=== PATIENT | female | born 1985 | race Caucasian/White ===

== ENCOUNTER → 2020-10-19 17:33 | Outpatient (BNVA) | payer BC, SELFPAY | PROVIDERS: Visit Provider Nurse Practitioner Family | DX: N39.0 Urinary tract infection, site not specified (principal) | CPT/HCPCS: 81000; 87086 ==

== ENCOUNTER 2020-12-31 13:28 | Outpatient (CLI) | payer BC, SELFPAY ==
--- NOTE | 2020-12-31 13:36 | US_ITS ---
WS: [id number] EARLY OBSTETRICAL ULTRASOUND (<14 WEEKS). HISTORY: VAGINAL BLEEDING, FIRST TRIMESTER/DATING COMPARISON: None available. Single intrauterine gestational sac is identified. Uterus is retroverted. Cardiac activity at 120 BPM . [place]-rump length measures 0.7 cm which corresponds to a gestation of 6w3d. Normal-appearing yolk s ac and amnion demonstrated. Smallsubchorionic hemorrhage.Hemorrhage measure 10 x 5 mm. Subchorionic h emorrhage is to the LEFT of midline. No free fluid. RIGHT ovary is not identified. Normal LEFT ovary. US/US OB <=14 wk fetus w transvag IMPRESSION: 1. Single intrauterine gestation of 6 weeks 3 days with an EDC of 08/23/2021. 2. Small subchorionic hemorrhage.
== END 2020-12-31 13:29 | disposition home or self-care (01) ==
LOC: RAD 13:32
PROVIDERS: Visit Provider Family Medicine
DX: O46.91 Antepartum hemorrhage, unspecified, first trimester (principal); Z3A.01 Less than 8 weeks gestation of pregnancy
CPT/HCPCS: 76801; 76817

== ENCOUNTER 2021-03-31 15:13 | Outpatient (CLI) | payer BC, SELFPAY ==
--- NOTE | 2021-03-31 15:18 | US_ITS ---
WS: [id number] OB ultrasound, 03/31/2021 Clinical Data: ANATOMY Comparison: OB ultrasound, 12/31/2020 Findings: There is a single intrauterine in the vertex presentation. The placenta is Anterior and gra de 1. There is a normal amount of amnionic fluid. The heart rate is 131 beats per minute. The c ervical length is 4.74 cm. Measurements of growth and development: BPD: 4.6 cm HC: 17.6 cm AC: 13.7 cm FL: 3.1 cm The estimated weight is 294 or approximately 10 ounces The estimated gestational age is 19w5d w ith an BEAU of approximately 08/20/2021. anatomy show a normal stomach, kidneys, bladder, both arms and both legs, female gender, RVOT/L VOT, cord insertion, three-vessel cord, entire spine, four-chamber heart, lateral cerebral ventricles , cerebellum and cisterna magna. The profile, nose and upper lip were not well seen. US/US OB >= 14 weeks fetus [id number] Impression: 1. Single intrauterine in vertex presentation. 2. Estimated gestational age 19w5d with an BEAU of 08/20/2021. 3. heart rate 131 beats per minute.
== END 2021-03-31 15:14 | disposition home or self-care (01) ==
LOC: RAD 15:16
PROVIDERS: Visit Provider Family Medicine
DX: Z34.82 Encounter for supervision of other normal pregnancy, second trimester; Z3A.19 19 weeks gestation of pregnancy
CPT/HCPCS: 76805

== ENCOUNTER 2021-07-13 09:39 | Outpatient (CLI) | payer BC, SELFPAY ==
[2021-07-13] VITALS (13 sets, daily range): BP systolic 117–132; BP diastolic 78–90; PULSE 74–90; TEMP 36.3
--- NOTE | 2021-07-13 09:54 | US_ITS ---
WS: [id number] ULTRASOUND OB LIMITED TECHNIQUE: Limited ultrasound examination of the fetus. CLINICAL INFORMATION: hypertension COMPARISON: None. FINDINGS: Cervix is long and closed measuring 4.2 cm Single interuterine gestation. presentation is vertex Placental location is anterior. Placenta grade: 0. heart rate 144 BPM. ROGER 18.4 cm greater than the median and less than the 95th percentile Normal umbilical artery and umbilical vein waveforms. Umbilical artery resistive indices 0.49-0.73. N ormal umbilical artery pulsatility and resistive indices. Anatomy: BDP: 8.9 cm = 36w0d HC: 32.5 cm = 36w6d AC: 30.9 cm = 34w6d FEMUR LENGTH: 6.9 cm = 35w2d Estimated weight: 2636 g., 69th %. EGA by ultrasound: 35w5d BEAU by ultrasound: 08/12/2021 Biophysical profile 8 out of 8. breathin movement: 2 tone: 2 Amniotic fluid: 2 US/US OB lm w fetalBPP woNST &umb IMPRESSION: 1. Normal biophysical profile 8 out of 8 2. Cervix is long and closed measuring 4.2 cm
[2021-07-13 10:32] LABS: Basophils % 0.4 %; Eosinophils % 0.4 %; Hematocrit 35.1 % (37.0-47.0); Hemoglobin 10.9 g/dL (11.5-15.3); Lymphocytes # 1.9 10^3/uL (0.8-4.8); Lymphocytes % 17.6 %; Mean Corpuscular HGB Conc 31.1 g/dL (30.0-36.0); Mean Corpuscular Hemoglobin 26.3 pg (28.0-34.0); Mean Corpuscular Volume 84.8 fl (81-99); Mean Platelet Volume 10.7 fL (7.4-10.4); Monocytes # 0.7 10^3/uL (0.2-0.9); Monocytes % 6.4 %; Neutrophils # 8.22 10^3/uL (1.8-7.7); Neutrophils % 74.7 %; Nucleated Red Blood Cells % 0 %; Platelet Count 243 10^3/cmm (130-400); Red Blood Count 4.14 10^6/uL (4.1-5.3); Red Cell Distribution Width 13.9 % (12.1-15.1)
[2021-07-13 10:56] LABS: Chloride 103 mmol/L (98-107)
[2021-07-13 11:13] LABS: Alanine Aminotransferase 13 U/L (0-33); Alkaline Phosphatase 107 IU/L (35-105); Aspartate Amino Transferase 16 U/L (0-32); Blood Urea Nitrogen 6 mg/dL (6-20); Calcium 8.4 mg/dL (8.5-10.5); Carbon Dioxide 18 mmol/L (22-29); Globulin 3.1 g/dL (1.3-4.6); Glomerular Filtration Rate 142.1 mL/min (90-130); Glucose 77 mg/dL (65-115); Osmolality Calculated 276 mOsm/kg (285-295); Sodium 135 mmol/L (136-145); Total Bilirubin 0.3 mg/dL (0.15-1.2); Total Protein 6.1 g/dL (6.6-8.7); Uric Acid 4.7 mg/dL (2.4-5.7)
== END 2021-07-13 12:40 | disposition home or self-care (01) ==
LOC: OPOB 09:44 → OBGYN 09:45
PROVIDERS: Visit Provider Family Medicine
DX: O16.3 Unspecified maternal hypertension, third trimester (principal); Z3A.35 35 weeks gestation of pregnancy
CPT/HCPCS: 36415; 59025; 76815; 76819; 76820; 80053; 84550; 85025; 99211

== ENCOUNTER 2021-07-18 13:05 | Outpatient (CLI) | payer BC, SELFPAY ==
[2021-07-18 13:21] VITALS: BP 133/89; PULSE 94; TEMP 36.4
[2021-07-18 13:24] VITALS: RESP 18
[2021-07-18 13:25] VITALS: BMI 33.4
[2021-07-18 13:29] VITALS: TEMP 36.4
[2021-07-18 13:37] VITALS: BP 134/95; PULSE 88
[2021-07-18 13:53] VITALS: BP 132/82; PULSE 94
== END 2021-07-18 14:02 | disposition home or self-care (01) ==
LOC: OPOB 13:13 → OBGYN 13:14
PROVIDERS: Visit Provider Family Medicine
DX: O13.9 Gestational [pregnancy-induced] hypertension without significant proteinuria, unspecified trimester (principal); Z3A.00 Weeks of gestation of pregnancy not specified
CPT/HCPCS: 59025

== ENCOUNTER 2021-07-21 12:17 | Outpatient (CLI) | payer BC, SELFPAY ==
[2021-07-21] VITALS (7 sets, daily range): BP systolic 118–130; BP diastolic 77–86; PULSE 80–92; TEMP 36.3; BMI 33.4
--- NOTE | 2021-07-21 12:48 | US_ITS ---
WS: [id number] BIOPHYSICAL PROFILE UMBILICAL ARTERY DOPPLER HISTORY: Hypertension COMPARISON: 07/13/2021 Cardiac activity: 157 bpm. Cervix: closed. Placenta: Anterior, no previa or abruption. Placenta grade: 1 Amniotic index: 7.2 cm, just above the 5th percentile. Largest vertical pocket of amniotic fluid is 3 .8 cm. Parameters are as follows: Breathin Movement: 2 Tone: 2 Fluid volume: 2 Waveform analysis: Normal systolic and diastolic velocities. Diastolic velocity remains above the bas nunu. Normal upstroke of waveform. SD ratios: SD ratios range from 1.9-2.8 Resistivity indices: 0.48, 0.64 US/US OB BPP wo NST w umb IMPRESSION: 1. Biophysical profile score: 8/8. 2. Normal cardiac activity. 3. Normal Doppler umbilical artery. 4. Oligohydramnios. Notified Miles Scott MD at 07/21/2021 1:57 PM. Nail Welter will notified Paras Scott.
== END 2021-07-21 14:18 | disposition home or self-care (01) ==
LOC: OPOB 12:21 → OBGYN 12:25
PROVIDERS: Visit Provider Family Medicine
DX: O16.9 Unspecified maternal hypertension, unspecified trimester (principal); O41.00X0 Oligohydramnios, unspecified trimester, not applicable or unspecified; Z3A.00 Weeks of gestation of pregnancy not specified
CPT/HCPCS: 59025; 76819; 76820

== ENCOUNTER 2021-07-25 08:35 | Outpatient (CLI) | payer BC, SELFPAY ==
[2021-07-25 08:52] VITALS: RESP 16; TEMP 36.6
--- NOTE | 2021-07-25 08:56 | US_ITS ---
WS: [id number] ULTRASOUND OB LIMITED TECHNIQUE: Limited ultrasound examination of the fetus. CLINICAL INFORMATION: Gestational Diabetes and Gestational Hypertension COMPARISON: July 21, 2021 FINDINGS: Cervix measures 4.1 cm Single interuterine gestation. Placental location is anterior. Placenta grade: 1 heart rate 141 BPM. ROGER 7.1 cm just below the 50th percentile Normal umbilical artery Doppler Normal Systolic/diastolic ratio 2.49 Resistive index 0.59 Gestational age 37 weeks 4 days Estimated delivery August 11, 2021 Biophysical profile 8 out of 8. breathin movement: 2 tone: 2 Amniotic fluid: 2 IMPRESSION 1. Cervix measures 4.1 cm. Cervix is long and closed. 2. Normal biophysical profile 8 out of 8 3. Amniotic fluid volume measures less than the 5th percentile slightly decreased from previous comp atible with oligohydramnios. 4. Normal umbilical artery Doppler
[2021-07-25 09:07] VITALS: BP 125/90; PULSE 82
[2021-07-25 09:20] VITALS: BP 124/87; PULSE 78
[2021-07-25 09:35] VITALS: BP 127/90; PULSE 78
[2021-07-25 09:50] VITALS: BP 130/92; PULSE 71
[2021-07-25 10:05] VITALS: BP 128/86; PULSE 87
[2021-07-26 15:30] LABS: Coronavirus Test Green County Not Detected
== END 2021-07-25 10:19 | disposition home or self-care (01) ==
LOC: OPOB 08:41 → OBGYN 08:52
PROVIDERS: Visit Provider Family Medicine
DX: O24.419 Gestational diabetes mellitus in pregnancy, unspecified control (principal); O13.9 Gestational [pregnancy-induced] hypertension without significant proteinuria, unspecified trimester; Z3A.37 37 weeks gestation of pregnancy; Z20.822 Contact with and (suspected) exposure to COVID-19
CPT/HCPCS: 59025; 76815; 76819; 76820; 87635; 99211

== ENCOUNTER 2021-07-28 06:12 | Inpatient (IN) | payer BC, SELFPAY ==
[2021-07-28] VITALS (129 sets, daily range): BP systolic 104–139; BP diastolic 57–98; PULSE 64–120; RESP 17; TEMP 35.9–36.6; O2SAT 98–100; BMI 33.0
[2021-07-28 07:02] LABS: Basophils % 0.2 %; Eosinophils # 0.1 10^3/uL (0.0-0.8); Eosinophils % 0.4 %; Hematocrit 35.2 % (37.0-47.0); Hemoglobin 11.3 g/dL (11.5-15.3); Lymphocytes # 3.3 10^3/uL (0.8-4.8); Lymphocytes % 27.5 %; Mean Corpuscular HGB Conc 32.1 g/dL (30.0-36.0); Mean Corpuscular Hemoglobin 26.4 pg (28.0-34.0); Mean Corpuscular Volume 82.2 fl (81-99); Mean Platelet Volume 11.5 fL (7.4-10.4); Monocytes # 0.8 10^3/uL (0.2-0.9); Monocytes % 6.6 %; Neutrophils # 7.78 10^3/uL (1.8-7.7); Neutrophils % 64.7 %; Nucleated Red Blood Cells % 0 %; Platelet Count 230 10^3/cmm (130-400); Red Blood Count 4.28 10^6/uL (4.1-5.3); Red Cell Distribution Width 14.6 % (12.1-15.1)
[2021-07-28] MEDS: miSOPROStol 100 mcg tablet 25 MCG VAGINAL (07:17)
--- NOTE | 2021-07-28 08:33 | P.HP_ITS ---
Providers/Chief Complaint Admitting Physician: Miles Scott MD Chief Complaint: INDUCTION OF LABOR History of Present Illness Leslie Kolb is a 35 year old at 37.0 weeks gestation by LMP consistent with 6-week ultrasound. 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 The patient presented to labor and delivery triage secondary to a scheduled induction of labor for preeclampsia without severe features. The patient has been having some intermittent elevated blood pressures with a 24-hour urine protein of 324 on 07/11/2021. We discussed at that time delivery versus watchful waiting. We decided to wait until 37 weeks as her symptoms were still mild in nature. The patient does have gestational diabetes and has been controlling her blood sugars well with diet alone. Currently the patient feels well overall. She did throw up this morning and feels that it was due to anxiety. She had a few flashes of light that self resolved. She denies any active headaches and dizziness. The patient denies leakage of fluid, vaginal bleeding, chest pains, shortness of breath, fever, dysuria. Medications/Allergies Home Medications Medication Instructions Recorded Confirmed Last Taken Type ferrous sulfate [Iron (ferrous 325 mg PO DAILY 07/13/21 07/28/21 2 Days Ago History sulfate)] ~07/26/21 prenat.vits,mary anne,[id number] 1 tab PO DAILY 07/13/21 07/28/21 2 Days Ago History [ Vitamin] ~07/26/21 Allergies Allergy/AdvReac Type Severity Reaction Status Date / Time No Known Allergies Allergy Verified 07/28/21 06:19 PFSH Acute PFSH: Family History (Updated 07/28/21 @ 08:39 by Miles Scott MD) Father Melanoma Social History Smoking and tobacco status: never smoked Alcohol intake: never Female Reproductive History: : 4 Vitals/I&O/Wt Last Vital Signs Temp 96.6 F L 07/28/21 06:39 Pulse 85 07/28/21 08:25 BP 130/88 07/28/21 08:25 Weight last 48 hrs Weight 205 lb Physical Exam Narrative: EXAM NARRATIVE: General: Alert and oriented x3 Eyes: Pupils equal round and reactive to light and accommodation Mouth: Mucous membranes moist, pharynx non-erythematous Cardiac: Regular rate and rhythm without murmurs Lungs: Clear to auscultation bilaterally without wheezes, crackles or rhonchi Abdomen: Soft, non-tender, fundus consistent with gestational age Extremities: +1 pitting edema in the bilateral lower extremities, deep tendon reflexes are brisk. Data : 07/28/21 06:35 A&P Assessment and plan (1) Oligohydramnios: Status: Acute (2) Gestational diabetes: Status: Acute (3) Preeclampsia: Status: Acute (4) Intrauterine : Status: Acute Additional A&P Information The patient is doing well at this time. Her preeclampsia and gestational diabetes are stable. We will proceed with induction of labor using Cytotec as she was 1 cm dilated upon admission. Contractions are currently every 6 to 8 minutes. The patient is not feeling them. heart tones are in the mid 140s with moderate variability and good accelerations. There are occasional early decelerations noted with contractions. We will check a blood sugar to see where we are starting and plan to check these throughout the delivery process. We will continue to follow blood pressures to be sure that they do not move up. We will plan to start the patient on IV magnesium during the active phase of labor. The patient may have a laboring epidural at 3 to 4 cm. Her GBS status is negative. All questions were answered. Proceed with induction of labor as scheduled due to preeclampsia without severe features. Attestations Medical Necessity Statement*: The patient will be here for greater than 2 midnights due to routine intrapartum and management of labor and delivery with complications of gestational diabetes, oligohydramnios and preeclampsia. 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
[2021-07-28 08:47] LABS: Glucose Point of Care 91 mg/dL (70-110)
[2021-07-28 12:49] LABS: Glucose Point of Care 71 mg/dL (70-110)
[2021-07-28] MEDS: dextrose 5%-lactated ringers 1,000 ML 125 ML IV ×2 (14:11→19:20)
[2021-07-28] MEDS: oxytocin 30 UNIT/500 ML BAG IV (14:12)
[2021-07-28] MEDS: lactated ringers 1,000 ML 999 ML IV ×2 (15:20→17:23)
--- NOTE | 2021-07-28 16:33 | PM.MISC ---
Miscellaneous Note Note: The patient has had some intermittent late decelerations. heart tones are in the mid 140s with moderate variability and good accelerations with intermittent decelerations. The patient has been nissa every 2 to 3 minutes. We tried to start IV Pitocin and there were more lights, so this was stopped. She was only on 1 unit. She has made change to 3.5 cm with 65% effacement. Since she is continuing to make change, we will not add any other medications at this time. The patient requests a labor epidural and we will proceed with this. For now I feel that we can safely continue with labor and for the vaginal delivery, however I did discuss that if we were having repetitive lights, that we would need to consider a section. We will watch for now. All questions were answered. The patient and her are in agreement with the current plan of care.
[2021-07-28 16:41] LABS: Glucose Point of Care 80 mg/dL (70-110)
--- NOTE | 2021-07-28 18:32 | P.ANES_ITS ---
Anesthesia Procedures Procedure/Date: 07/28/21 Epidural: Time Out Performed: Yes Consents Signed: Procedure Consent Consent: from patient, risks and benefits reviewed and patient agrees to proceed Lumbar Level: L3-L4 Epidural position: sitting Epidural procedure: sterile prep of area, 1% lidocaine to numb the area, 18 g needle (RACQUEL at 8cm), n eg for paresthesia, test dose given, 1.5% xylocaine 1:200k epi (5cc), 0.2% Ropivacaine bolus ml (5cc off pump), placed PCEA, no systemic response, sterile dressing applied, L.U.D. no apparent complications and 0.2% Ropiavacaine @ mls/hr (13cc/hour)
[2021-07-28] MEDS: ondansetron 2 mg/ML SDV 2 mL 4 MG IVP (19:42)
[2021-07-28] MEDS: magnesium sulfate premix 4 GM/100 ML PREMIX IV (20:14)
--- NOTE | 2021-07-28 20:26 | PM.DELIVERY ---
Delivery Note: Date of delivery: July 28, 2021 Pre-Delivery Course: Leslie Kolb is a 35 year old G4 now P3002 status post spontaneous vaginal delivery at 37.0 weeks gestation by LMP consistent with 6-week ultrasound. 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 The patient presented to labor and delivery triage secondary to a scheduled induction of labor for preeclampsia without severe features. The patient has been having some intermittent elevated blood pressures with a 24-hour urine protein of 324 on 07/11/2021. We discussed at that time delivery versus watchful waiting. We decided to wait until 37 weeks as her symptoms were still mild in nature. The patient does have gestational diabetes and has been controlling her blood sugars well with diet alone. The patient came in for induction of labor on the morning of 07/28/2021. The patient was given 1 dose of Cytotec as her cervix was 1/50/-4 upon presentation. After the first dose, the patient had some intermittent late decelerations. These cleared with position changing. The patient had long stretches with reassuring heart tones. Patient began to contract regularly and was nissa every 3 to 5 minutes. 4 hours after the first dose of Cytotec, she was 2/50/-2. IV Pitocin was started at 1 unit to augment labor, however there were late decelerations with this. For this reason it was stopped. The patient was watched for the next couple of hours and began to make change on her own. She made steady change and had some intermittent periods with late decelerations followed by long stretches with reassuring heart tones. The patient received a laboring epidural and had another stretch of late decelerations that were felt to be associated with lower blood pressure. As her blood pressure improves these also resolved. The patient was checked and noted to be 6 cm dilated. It was felt that since she was changing rapidly, that we could continue to proceed with a vaginal delivery since the lates were improving. At 1930 heart tone tracings were with moderate variability. At 1939 the patient was set up to have catheter placement. Following this a deceleration started and turned into a prolonged deceleration. I was watching the strip and entered the room and checked the patient. The patient was found to be complete. While we were setting up, the patient was put into hands and knees position and heart tones did improve. At 1947, AROM was performed and abundant clear fluid was noted. The patient was complete at that time. Delivery: The patient began pushing at 1948 on 07/28/2021. She pushed very well and the infant descended from -1 station to after 1 contraction. With the following contraction, the patient was able to push the infant out. The delivered in the OA position at 1952 on 07/28/2021. A tight nuchal cord was present and could not be reduced easily, so the was delivered through the cord. The left shoulder was the anterior shoulder and it delivered with ease. The rest of the infant delivered with ease. The 's mouth and nose were bulb suctioned by myself. The infant was placed on the mother's chest where the nurses were waiting to care for her. The infant had poor tone at , so the cord was clamped immediately by myself and cut by the 's father. The infant was taken to the warmer for further resuscitation. The cord was then drained of blood and a sample of cord blood was obtained. Traction was placed on the umbilical cord and the placenta delivered quickly with ease. The placenta was noted to be intact with a central umbilical cord insertion site. The uterus was massaged and the patient had very little bleeding. Uterus was noted to be firm, but elevated as the bladder was felt to be full of urine. The cervix was inspected and no lacerations were noted. The vaginal wall was inspected and a second-degree laceration was noted on the left wall. This was bleeding. The patient's epidural provided adequate anesthesia and the laceration was repaired with 3-0 Vicryl in a running fashion. The patient tolerated this well. A rectal exam was done and no sutures were noted in the rectal vault. Currently both the mother and are doing well. A&P Assessment and plan (1) Oligohydramnios: Status: Acute (2) Gestational diabetes: Status: Acute (3) Preeclampsia: Status: Acute (4) Intrauterine : Status: Acute (5) Spontaneous vaginal delivery: Status: Acute Coding Level of Care Code Acute [employer] Refrigerator for [facility] Diagnoses Oligohydramnios O41.00X0 Gestational diabetes O24.419 Preeclampsia O14.90 Intrauterine Z34.90 Spontaneous vaginal delivery O80
[2021-07-28] MEDS: magnesium sulfate premix 20 GM/500 ML BAG IV (20:34)
[2021-07-28] MEDS: oxytocin 30 UNIT/500 ML BAG 600 UNIT IV (20:45)
[2021-07-28] MEDS: ibuprofen 800 mg tablet PO (21:01)
[2021-07-29] VITALS (21 sets, daily range): BP systolic 108–126; BP diastolic 67–90; PULSE 72–89; TEMP 35.8–36.3
[2021-07-29 03:04] LABS: Magnesium Level (OB Only) 4.5 mg/dL (5.0-7.5)
[2021-07-29] MEDS: magnesium sulfate premix 20 GM/500 ML BAG IV ×2 (06:27→15:39)
[2021-07-29 08:49] LABS: Hematocrit 31.5 % (37.0-47.0); Mean Corpuscular HGB Conc 31.7 g/dL (30.0-36.0); Mean Corpuscular Hemoglobin 26.2 pg (28.0-34.0); Mean Corpuscular Volume 82.5 fl (81-99); Mean Platelet Volume 11.3 fL (7.4-10.4); Platelet Count 173 10^3/cmm (130-400); Red Blood Count 3.82 10^6/uL (4.1-5.3); Red Cell Distribution Width 14.6 % (12.1-15.1); White Blood Count 14.2 10^3/uL (4.0-10.0)
[2021-07-29] MEDS: docusate sodium 100 mg Capsule PO (09:09)
[2021-07-29] MEDS: ibuprofen 800 mg tablet PO ×2 (09:09→15:42)
[2021-07-29] MEDS: dextrose 5%-lactated ringers 1,000 ML 125 ML IV (09:09)
[2021-07-29] MEDS: prenatal vitamin Capsule 1 CAP PO (09:10)
[2021-07-29 09:15] LABS: Magnesium Level (OB Only) 5.5 mg/dL (5.0-7.5)
--- NOTE | 2021-07-29 09:37 | ANE.PACU2 ---
Inpatient post-anesthesia follow up: Airway intact: Yes Vital signs: Temperature 97.0 F Pulse Rate 80 Respiratory Rate 17 Blood Pressure 126/77 Pulse Oximetry 100 Oxygen Delivery Me thod Room Air Oxygen Flow Rate Fraction of Inspir ed Oxygen Hydration adequate: Yes Nausea and vomiting: No Pain level: 2 Mental status: Baseline
--- NOTE | 2021-07-29 12:23 | PC.NURSE ---
11:30 note I had visited with this mom this morning around 09:30 and she indicated she wanted to continue to work on . Baby had 1 oz of formula around 8 am for declining blood sugars and was very quiet and content at this time. Mom indicated she did not have a lot of basic knowledge about so I provided her with the Understanding book. I just now checked with her and baby was being fed by a family member. Mom was resting but awake. She asked about pumping and feeding her milk. She was shown last night how to hand express, so I encouraged her to do it at least 8 times in 24 hours or more and to add a breast pump as soon as she was able. Showed her the page in the book on hand expression. Provided resource information for pumping with [facility]'s web site and my contact information.
--- NOTE | 2021-07-29 12:53 | PM.PN ---
Subjective Subjective: Interval history: The patient is feeling fatigued on IV magnesium, otherwise well overall. Her bleeding has been decreasing well. Her urine output has been decent. The patient denies any nausea or headaches currently. She denies chest pains and shortness of breath. Vitals/I&O/Wt Last Vital Signs Temp 97.3 F L 07/28/21 18:47 Pulse 76 07/29/21 11:30 Resp 17 07/28/21 23:38 BP 126/83 07/29/21 11:30 Pulse Ox 100 07/28/21 20:22 07/28/21 07/29/21 07/29/21 22:59 06:59 14:59 Intake Total 1414.00 / 1414.30 1494.167 / 2908.467 Output Total 2213 / 2213 1710 / 1710 Balance 1414.00 / 1414.30 -718.833 / 695.467 -1710 / -1710 Weight last 48 hrs Weight 205 lb Physical Exam Narrative: EXAM NARRATIVE: General: Alert and oriented x3 Cardiac: Regular rate and rhythm without murmurs Lungs: Clear to auscultation bilaterally without wheezes, crackles or rhonchi Abdomen: Soft, non-tender, fundus is firm and 1 cm below the umbilicus. Extremities: +2 pitting edema in the bilateral lower extremities. Brisk reflexes noted in the deep tendon reflexes. Urinary Catheter Management^: Hui: Cath Placed During This Visit: yes Reason for Continuing Indwelling Catheter: Accurate Measurement of Urinary Output in Critically Ill Patients Urinary Catheter Date of Insertion: 07/28/21 Urinary Catheter Time of Insertion: 20:13 Data : 07/29/21 08:35 A&P Additional A&P Information The patient is currently on IV magnesium and is doing well. Her blood pressures have been well controlled. Her urine output is adequate. As long as her blood pressures continue to do well, will plan to discontinue the IV magnesium after 24 hours. The patient's bleeding is decreasing well. Her pain is well controlled. Continue with current plan of care. We will add ferrous sulfate twice a day due to anemia. Attestations Medical Necessity Statement*: Patient continues need inpatient care as she is treated for preeclampsia. Her care will cross 2 midnights. Coding Level of Care Code Acute Director Of Compensation for Tracy Masters
[2021-07-29 15:39] LABS: Magnesium Level (OB Only) 5.9 mg/dL (5.0-7.5)
[2021-07-30 04:20] VITALS: BP 124/86; PULSE 92; TEMP 36.3
[2021-07-30 09:35] VITALS: BP 133/82; PULSE 92; TEMP 36.9
--- NOTE | 2021-07-30 09:55 | P.DS_ITS ---
Discharge Providers Date of Admission: 07/28/21 06:12 Date of Discharge: July 30, 2021 Attending Provider at Admission: Miles Scott MD Attending Provider at Discharge: Miles Scott MD Diagnoses at Discharge Discharge Diagnosis (1) Oligohydramnios: Status: Resolved (2) Gestational diabetes: Status: Resolved (3) Preeclampsia: Status: Resolved (4) Intrauterine : Status: Resolved (5) Spontaneous vaginal delivery: Status: Resolved Reason for Visit Reason for Visit: INDUCTION OF LABOR Hospital Course Hospital Course Leslie Kolb is a 35 year old G4 now P3002 status post spontaneous vaginal delivery at 37.0 weeks gestation by LMP consistent with 6-week ultrasound. 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 The patient presented to labor and delivery triage secondary to a scheduled induction of labor for preeclampsia without severe features. The patient has been having some intermittent elevated blood pressures with a 24-hour urine protein of 324 on 07/11/2021. We discussed at that time delivery versus watchful waiting. We decided to wait until 37 weeks as her symptoms were still mild in nature. The patient does have gestational diabetes and has been controlling her blood sugars well with diet alone. The patient came in for induction of labor on the morning of 07/28/2021 and delivered vaginally that evening. She was placed on IV magnesium for 24 hours . The patient's blood pressures have been well controlled since delivery and the patient is now ambulating, voiding, passing gas and tolerating food by mouth. The patient is breast-feeding and bottlefeeding. Discussion was had regarding the precautions for management after preeclampsia. Routine instructions were also discussed. All questions were answered. The patient and her are in agreement with discharge home at this time. They will follow-up with me early next week in clinic. Physical Exam Narrative: EXAM NARRATIVE: General: Alert and oriented x3 Cardiac: Regular rate and rhythm without murmurs Lungs: Clear to auscultation bilaterally without wheezes, crackles or rhonchi Abdomen: Soft, non-tender, fundus is firm and 1 cm below the umbilicus. Extremities: +2 pitting edema in the bilateral lower extremities. Urinary Catheter Management^: Hui: Cath Placed During This Visit: yes, but has since been removed by the nurse Reason for Continuing Indwelling Catheter: Accurate Measurement of Urinary Output in Critically Ill Patients Urinary Catheter Date of Insertion: 07/28/21 Urinary Catheter Time of Insertion: 20:13 Date Urinary Catheter Removed: 07/29/21 Time Urinary Catheter Discontinued: 21:45 Discharge Data Data Completed and Pending: Labs from last 24 hours 07/29/21 14:45 Magnesium 5.9 Vitals: Last Vital Signs Temp 98.4 F 07/30/21 09:35 Pulse 92 07/30/21 09:35 Resp 17 07/28/21 23:38 BP 133/82 07/30/21 09:35 Pulse Ox 100 07/28/21 20:22 Discharge Plan Discharge Patient Disposition: Home Condition: Good Prescriptions: New ibuprofen 800 mg Tablet 800 mg PO TID Qty: 30 RF: 0 Continued prenat.vits,mary anne,[id number] Tablet 1 tab PO DAILY Qty: 60 RF: 0 Changed Iron (ferrous sulfate) 325 mg (65 mg iron) Tablet 325 mg PO BIDWM Qty: 30 RF: 0 Discharge Orders: Discharge Order (Routine); Ordered 07/30/21 Ordered By: Miles Scott Referrals: Miles Scott MD [Physician] - 1-3 days (Call first thing Sunday to scheduled appt with Dr Scott for you and baby for Sunday or ) Discharge Diet: Regular Discharge Activity: Limit activity as instructed Patient Instructions: Bleeding (GEN), Preeclampsia and Eclampsia After Delivery (GEN), OB Caring for Baby - [facility], OB Discharge Report, OB Food/Drug Interaction Guide, Opioid Safety, OB Your Care - [facility], OB Vaginal Deliveries Activity Restrictions/Additional Instructions: Nothing per vagina for 6 weeks. Keep activity level low for the next few days then gradually increase. If you have any concern that your bleeding is increasing, please seek immediate medical attention. Discharge Attestations Time Spent in Discharge Care*: greater than 30 min Quality Metrics Clinical Quality Measures During this hospital stay, did patient experience: None Coding Level of Care Code Acute Chg FW DC note Diagnoses Oligohydramnios O41.00X0 Gestational diabetes O24.419 Preeclampsia O14.90 Intrauterine Z34.90 Spontaneous vaginal delivery O80
[2021-07-30] MEDS: prenatal vitamin Capsule 1 CAP PO (10:50)
[2021-07-30] MEDS: ferrous sulfate EC 325 mg Tablet PO (10:50)
[2021-07-30] MEDS: docusate sodium 100 mg Capsule PO (10:51)
[2021-07-30] MEDS: ibuprofen 800 mg tablet PO ×2 (10:51→15:13)
[2021-07-30 15:14] VITALS: BP 126/77; PULSE 80; TEMP 36.1
[2021-07-30 15:50] VITALS: BP 126/77; PULSE 80; RESP 17; TEMP 36.1
== END 2021-07-30 16:05 | disposition home or self-care (01) | DRG 806 ==
PROVIDERS: Admitting Provider Family Medicine; Visit Provider Family Medicine
DX: O14.04 Mild to moderate pre-eclampsia, complicating childbirth (principal); O41.03X0 Oligohydramnios, third trimester, not applicable or unspecified; Z37.0 Single live birth; O24.420 Gestational diabetes mellitus in childbirth, diet controlled; O69.81X0 Labor and delivery complicated by cord around neck, without compression, not applicable or unspecified; O76 Abnormality in fetal heart rate and rhythm complicating labor and delivery; O71.4 Obstetric high vaginal laceration alone; O90.81 Anemia of the puerperium; D64.9 Anemia, unspecified; Z3A.37 37 weeks gestation of pregnancy; Z87.59 Personal history of other complications of pregnancy, childbirth and the puerperium
CPT/HCPCS: 36415; 36416; 51702; 59025; 59409; 82962; 83735; 85025; 85027; G0379; J2405; J2795; J3475